=== PATIENT | female | born 1970 | race Caucasian/White ===

== ENCOUNTER 2023-01-31 11:38 | Emergency (ER) | payer OTHER ==
[2023-01-31 11:57] VITALS: BP 138/91; PULSE 73; RESP 18; TEMP 98; BMI 23.3
[2023-01-31] MEDS ORDERED: KETOROLAC TROMETHAMINE 30 MG/1 ML VIAL IM ONE (12:27)
[2023-01-31] MEDS ORDERED: KETOROLAC TROMETHAMINE 30 MG/1 ML VIAL ONE (12:28)
== END 2023-01-31 14:17 | disposition home or self-care (01) ==
LOC: JERFT 11:38 → JER 11:38 → JERFT 14:17
PROC: 3E0233Z Introduction of Anti-inflammatory into Muscle, Percutaneous Approach (ICD-10-PCS; principal; 2023-01-31)
DX: N64.4 Mastodynia (principal); R05.9 Cough, unspecified; R07.89 Other chest pain; W50.0XXA Accidental hit or strike by another person, initial encounter
CPT/HCPCS: 71046-TC-FY; 76642-TC-LT; 93005; 93010; 99285-25